=== PATIENT | male | born 1970 | race American Indian/Alaskan Native ===

== ENCOUNTER 2018-10-10 21:11 | Emergency (ER) | payer BC ==
[2018-10-10 21:54] LABS: Basophils % (Auto) 0.3 % (0.0-1.8); Eosinophils # (Auto) 0.2 K/mm3 (0.0-0.4); Eosinophils % (Auto) 2.8 % (0.0-4.3); Hematocrit 46.5 % (35.5-45.6); Hemoglobin 15.7 gm/dl (11.8-15.2); Lymphocytes # (Auto) 1.8 K/mm3 (1.2-5.4); Lymphocytes % (Auto) 21.1 % (13.4-35.0); Mean Corpuscular HGB Conc 34 % (32-34); Mean Corpuscular Volume 86 fl (84-94); Monocytes # (Auto) 0.6 K/mm3 (0.0-0.8); Monocytes % (Auto) 6.6 % (0.0-7.3); Platelet Count 737 K/mm3 (140-440); Red Blood Count 5.43 M/mm3 (3.65-5.03); Red Cell Distribution Width 14.3 % (13.2-15.2)
[2018-10-10 22:09] LABS: BUN/Creatinine Ratio 12; Blood Urea Nitrogen 13 mg/dL (9-20); Calcium 9.4 mg/dL (8.4-10.2); Hemolysis Index 6
--- NOTE | 2018-10-10 23:22 | XRay Report ---
PROCEDURE: XR CHEST ROUTINE 2V TECHNIQUE: PA and lateral chest radiographs were obtained. HISTORY: chest pain COMPARISONS: None. FINDINGS: Heart: Normal. Mediastinum/Vessels: Normal. Lungs/Pleural space: Normal. Bony thorax: No acute osseous abnormality. IMPRESSION: Normal examination. This document is electronically signed by Nacho Lr MD., October 10 2018 11:20:43 PM ET
--- NOTE | 2018-10-11 01:17 | Emergency Department Report ---
ED Chest Pain HPI - General Chief Complaint: Chest Pain Stated Complaint: CHEST PAIN Time Seen by Provider: 10/11/18 01:08 Source: patient Mode of arrival: Ambulatory Limitations: No Limitations - History of Present Illness Initial Comments: 48-year-old male with history of diabetes presents to ED with complaint of chest pain. Patient states he was home, when he developed substernal chest pain. Reports associated diaphoresis and vomiting. Patient states pain lasted for approximately 30 minutes before it resolved. Patient states he took 2 Aleve. Denies tobacco, drug use. Patient reports previous stress testing approximately 10 years ago. PCP: Dr Guille CASTILLO Complaint: chest pain -: This evening Onset: during rest Pain Location: substernal Pain Radiation: none Severity: moderate Quality: aching Consistency: constant, now resolved Improves With: nothing Worsens With: nothing re: nausea, vomting, diaphoresis, dyspnea Treatments Prior to Arrival: other (aleve x 2) - Related Data Home Medications Medication Instructions Recorded Confirmed Last Taken Metoprolol [Lopressor TAB] 50 mg PO DAILY 06/03/13 02/17/15 06/03/13 09:00 Saxagliptin HCl/Metformin HCl 1,000 mg PO BID 06/03/13 02/17/15 06/03/13 17:00 [Kombiglyze XR 5-1,000 mg] amLODIPine/VALSARTAN [Exforge 1 tab PO DAILY 06/03/13 02/17/15 06/03/13 09:00 10-320 mg Tablet] glipiZIDE [glipiZIDE XL] 10 mg PO BID 06/03/13 02/17/15 06/03/13 17:00 Previous Rx's Medication Instructions Recorded Last Taken Type Amoxicillin [Amoxicillin TAB] 875 mg PO BID #20 tablet 02/17/15 Unknown Rx traMADol [Ultram 50 MG tab] 50 mg PO Q6HR PRN #20 tablet 02/17/15 Unknown Rx Allergies Allergy/AdvReac Type Severity Reaction Status Date / Time No Known Allergies Allergy Verified 10/10/18 21:14 Heart Score - HEART Score History: Moderately suspicious EKG: Non-specific Age: 45-65 Risk factors: No known risk factors Troponin: < normal limit HEART Score: 3 ED Review of Systems ROS: Stated complaint: CHEST PAIN Other details as noted in HPI Comment: All other systems reviewed and negative Constitutional: diaphoresis. denies: chills, fever Respiratory: shortness of breath Cardiovascular: chest pain Gastrointestinal: nausea, vomiting ED Past Medical Hx - Past Medical History Previous Medical History?: Yes Hx Hypertension: Yes Hx Diabetes: Yes Additional medical history: back pain- MS - Surgical History Past Surgical History?: Yes Additional Surgical History: rt knee surgery 05/29/2013, hernia repair - Social History Smoking Status: Never Smoker Substance Use Type: None - Medications Home Medications: Home Medications Medication Instructions Recorded Confirmed Last Taken Type Metoprolol [Lopressor TAB] 50 mg PO DAILY 06/03/13 02/17/15 06/03/13 09:00 History Saxagliptin HCl/Metformin HCl 1,000 mg PO BID 06/03/13 02/17/15 06/03/13 17:00 History [Kombiglyze XR 5-1,000 mg] amLODIPine/VALSARTAN [Exforge 1 tab PO DAILY 06/03/13 02/17/15 06/03/13 09:00 History 10-320 mg Tablet] glipiZIDE [glipiZIDE XL] 10 mg PO BID 06/03/13 02/17/15 06/03/13 17:00 History Amoxicillin [Amoxicillin TAB] 875 mg PO BID #20 tablet 02/17/15 Unknown Rx traMADol [Ultram 50 MG tab] 50 mg PO Q6HR PRN #20 tablet 02/17/15 Unknown Rx ED Physical Exam - General Limitations: No Limitations General appearance: alert, in no apparent distress - Head Head exam: Present: atraumatic, normocephalic - Eye Eye exam: Present: normal appearance - ENT ENT exam: Present: mucous membranes moist - Neck Neck exam: Present: normal inspection - Respiratory Respiratory exam: Present: normal lung sounds bilaterally. Absent: respiratory distress - Cardiovascular Cardiovascular Exam: Present: regular rate, normal rhythm - GI/Abdominal GI/Abdominal exam: Present: soft. Absent: distended, tenderness - Extremities Exam Extremities exam: Absent: pedal edema, calf tenderness - Neurological Exam Neurological exam: Present: alert, oriented X3, CN II-XII intact. Absent: motor sensory deficit - Psychiatric Psychiatric exam: Present: normal affect, normal mood - Skin Skin exam: Present: warm, dry, intact, normal color ED Course Vital Signs 10/10/18 10/10/18 10/10/18 21:15 21:25 23:13 Temperature 97.9 F 97.9 F Pulse Rate 81 80 73 Respiratory 18 18 16 Rate Blood Pressure 118/75 118/75 Blood Pressure [Right] O2 Sat by Pulse 99 99 99 Oximetry 10/11/18 10/11/18 10/11/18 00:20 00:30 01:00 Temperature Pulse Rate 75 78 72 Respiratory 15 15 11 L Rate Blood Pressure 127/74 127/74 114/70 Blood Pressure [Right] O2 Sat by Pulse 97 100 100 Oximetry 10/11/18 10/11/18 01:30 02:07 Temperature 98.6 F Pulse Rate 72 73 Respiratory 14 16 Rate Blood Pressure 114/70 Blood Pressure 115/71 [Right] O2 Sat by Pulse 100 99 Oximetry ED Medical Decision Making - Lab Data Result diagrams: 10/10/18 21:32 10/10/18 21:32 - EKG Data -: EKG Interpreted by [facility] EKG shows normal: sinus rhythm, axis, intervals, QRS complexes Rate: normal - EKG Data Interpretation: other (T wave inversions anterolateral leads) - Radiology Data Radiology results: report reviewed, image reviewed - Medical Decision Making 48-year-old male with chest pain and associated diaphoresis and vomiting with abnormal EKG showing anterolateral T-wave inversions. Troponin normal. Chest x-ray normal. Patient advised to stay for admission to complete his cardiac workup due to his symptoms, EKG, and the fact that it is an 10 years since his last stress test. However, patient refuses admission but does not want to stay. Patient advised that it would likely be a brief hospital stay unless an abnormality was found. However the patient still refuses. Risk of heart attack, sudden explained to patient. Patient states he understands. Advised patient to follow- up with his PCP, return to ED if needed. Patient signed out AMA. - Differential Diagnosis ACS, pneumonia, GERD Critical care attestation.: If time is entered above; I have spent that time in minutes in the direct care of this critically ill patient, excluding procedure time. ED Disposition Clinical Impression: Chest pain Disposition: DC-07 LEFT AGAINST MED ADVICE Is pt being admited?: No Condition: Stable Instructions: Chest Pain (ED) Referrals: PRIMARY CARE, [Referring] - ANDREA Forms: AMA Form, Work/School Release Form(ED) Time of Disposition: 01:40
[2018-10-11 02:08] VITALS: BP 115/71
== END 2018-10-11 02:06 | disposition left against medical advice (07) ==
LOC: ED 21:11
DX: R07.89 Other chest pain (principal); R11.2 Nausea with vomiting, unspecified; R61 Generalized hyperhidrosis; R06.02 Shortness of breath; I10 Essential (primary) hypertension; E11.9 Type 2 diabetes mellitus without complications; Z96.651 Presence of right artificial knee joint; Z79.899 Other long term (current) drug therapy
CPT/HCPCS: 36415; 71046; 80048; 84484; 85025; 93005; 93010